=== PATIENT | female | born 1975 | race Caucasian/White ===

== ENCOUNTER 2022-05-21 07:57 | Emergency (ER) | payer SELFPAY ==
[2022-05-21 08:07] VITALS: BMI 26.2
[2022-05-21 08:37] LABS: HEMATOCRIT 39.9 % (32.4-45.2); HEMOGLOBIN 13.7 GM/dL (10.7-15.3); MCH 31.2 pg (25.7-33.7); MCHC 34.5 g/dl (32.0-36.0); MEAN CELL VOLUME 90.6 fl (80-96); PLATELET COUNT 381 10^3/uL (134-434); RDW 12.7 % (11.6-15.6); WHITE BLOOD COUNT 6.1 K/mm3 (4.0-10.0)
[2022-05-21 08:57] LABS: CALCIUM 8.4 mg/dL (8.5-10.1)
[2022-05-21 08:58] LABS: ALBUMIN 3.6 g/dl (3.4-5.0); BLOOD UREA NITROGEN 9.3 mg/dL (7-18)
[2022-05-21 09:01] LABS: CREATININE 0.7 mg/dL (0.55-1.3)
[2022-05-21 09:02] LABS: BILIRUBIN,TOTAL 0.5 mg/dL (0.2-1)
[2022-05-21 10:17] VITALS: BP 107/67; PULSE 70; RESP 16; TEMP 98.1
== END 2022-05-21 10:10 | disposition home or self-care (01) ==
LOC: JER 07:57
DX: R42 Dizziness and giddiness (principal)
CPT/HCPCS: 36415; 80053; 85027; 93005; 93010; 99284-25

== ENCOUNTER 2024-12-09 04:00 | Emergency (ER) | payer OTHER ==
[2024-12-09 04:16] VITALS: BP 136/85; PULSE 80; RESP 18; TEMP 97.9; BMI 27.4
[2024-12-09] MEDS ORDERED: ACETAMINOPHEN INJECTION 100 ML ONE (04:41)
[2024-12-09] MEDS: ACETAMINOPHEN 1000 MG/100 ML BAG IVPB ONE (05:00)
== END 2024-12-09 05:20 | disposition home or self-care (01) ==
LOC: JER 04:00
DX: R00.2 Palpitations (principal)
CPT/HCPCS: 99283-25